=== PATIENT | male | born 1935 | race Caucasian/White ===

== ENCOUNTER 2021-12-14 06:30 | Day surgery (SDC) | payer OTHER ==
[2021-12-10 15:04] LABS: Absolute Lymphocytes (CBC) 0.8 K/uL (0.7-4.9); Hematocrit 39.3 % (39.6-49.0); Lymphocytes % 16.9 % (15.3-44.8); MPV 8.2 fL (7.6-11.3); RBC Red Blood Cell Count 4.12 M/uL (4.33-5.43)
[2021-12-10 15:08] LABS: Protime INR 1.12
[2021-12-10 15:11] LABS: Potassium 4.1 mmol/L (3.5-5.1)
[2021-12-14] MEDS ORDERED: NA CHLORIDE 0.9% 500 ML ONE (06:49)
[2021-12-14] MEDS ORDERED: METOPROLOL TARTRATE 5 MG/5 ML INJ IV ONE (06:50)
[2021-12-14] MEDS ORDERED: MIDAZOLAM HCL 10 ML ONE (06:50)
[2021-12-14] MEDS ORDERED: MIDAZOLAM HCL 2 MG/2 ML INJ ONE (06:50)
[2021-12-14] MEDS ORDERED: FENTANYL CITR 100 MCG/2 ML ONE (06:50)
[2021-12-14] MEDS ORDERED: ATROPINE SULF 1 MG/10 ML SYR IV ONE (06:51)
--- NOTE | 2021-12-14 09:59 | DS ---
Date of Discharge: 12/14/2021 The patient was actually brought to the recovery room today on 12/14/2021 for a cardioversion because of atrial flutter; however, when he came to recovery room, he had already converted to sinus rhythm. He was taking Eliquis at home. He has stopped his Multaq about a month ago by [place] on. He has had recurrent atrial flutter since. I went for cardioversion, although he was already in sinus rhythm. We aborted the procedure. We decided to discharge on his home medications. I will r estart him back on Multaq 100 b.i.d. He can go home. The procedure was not done. He will follow up with me in the next couple of weeks. SHEYLA Voice ID: [id number] Report ID: [id number]
--- NOTE | 2021-12-14 12:17 | EKG ---
Test Date: 2021-12-14 Test Time: 07:16:16 [employer] [facility] Supervisor: JASON MEASUREMENT RESULTS: Intervals: Rate: 68 ID: [id number] QRSD: 84 QT: 394 QTc: 418 [place]: P: 0 ID: [id number] QRS: -22 T: 42 INTERPRETIVE STATEMENTS: Normal sinus rhythm Normal ECG Compared to ECG 07/03/2018 07:47:46 Sinus bradycardia no longer present First degree AV block no longer present Electronically Signed On 12-14-21 12:16:26 CDT by Philip Chavez
== END 2021-12-14 07:37 | disposition home or self-care (01) ==
LOC: CCL 06:30
DX: I48.92 Unspecified atrial flutter (principal); Z53.8 Procedure and treatment not carried out for other reasons; Z79.01 Long term (current) use of anticoagulants; Z20.822 Contact with and (suspected) exposure to COVID-19
CPT/HCPCS: 36415; 80048; 85025; 85610; 85730; 93005; J2250; J3010; J7040; U0003